=== PATIENT | male | born 1960 | race Caucasian/White ===

== ENCOUNTER → 2017-07-03 | Outpatient (CLI) | payer BC ==
--- NOTE | 2017-07-03 16:09 | CT ---
HISTORY: Right flank pain, calculus of kidney Study: CT abdomen and pelvis without contrast Comparison: None Technique: Multiple axial images of the abdomen and pelvis were obtained without IV contrast. Dose reduction techniques including Automated Exposure Control (AEC) and adjustment of mA and kV were utilized. Findings: Please note evaluation is limited without use of IV contrast. The visualized lung bases are clear. The unenhanced spleen, pancreas, liver and adrenal glands are unremarkable. The gallbladder is normal. Bilateral nephrolithiasis is present. There is right-sided hydroureteronephrosis due to a 6 mm stone in the distal right ureter. No free intraperitoneal air. No evidence of intestinal obstruction or inflammation. The appendix is normal. No free fluid identified. The soft tissues and osseous structures are unremarkable. The vascular structures are unremarkable. No pathologically enlarged lymph nodes are identified. IMPRESSION: 1. Right-sided hydronephrosis due to a 6 mm stone in the distal right ureter. 2. Bilateral nephrolithiasis. Reported By:
== END ==
LOC: RAD 14:44
PROVIDERS: ATTEND Family Medicine
DX: N20.0 Calculus of kidney (principal)
CPT/HCPCS: 74176